=== PATIENT | male | born 1970 | race Caucasian/White ===

== ENCOUNTER 2021-09-30 10:24 | Outpatient (REF) | payer OTHER, SELFPAY ==
--- NOTE | ~2021-09-30 | US_ITS ---
EXAMINATION: US RETROPERITONEAL LIMITED (RENAL ONLY) CLINICAL INFORMATION: Chronic flank pain. COMPARISON: CT abdomen and pelvis 01/03/2020. Renal ultrasound 12/17/2019. TECHNIQUE: Real-time imaging of the kidneys. FINDINGS: RIGHT KIDNEY: 12.0 x 4.7 x 5.8 cm (SAG x AP x TRV). The kidney is normal in size, contour, and echogenicity. Renal cortical thickness is normal. No calculi or focal parenchymal lesions. No hydronephrosis. There is a hypertrophied column of Reza in midpole. LEFT KIDNEY: 12.1 x 5.5 x 5.2 cm (SAG x AP x TRV). The kidney is normal in size, contour, and echogenicity. Renal cortical thickness is normal. No renal calculi or hydronephrosis. There are multiple peripelvic cysts largest in midpole measuring 2.2 x 1.9 x 2.2 cm and upper pole measuring 2.0 x 1.1 x 1.4 cm. US/US renal BI IMPRESSION: Multiple peripelvic cysts left kidney. Hypertrophied column of Reza in midpole right kidney.
== END 2021-09-30 10:25 | disposition home or self-care (01) ==
LOC: HO.HMGCX 10:24
PROVIDERS: Visit Provider Nurse Practitioner Family
DX: R10.9 Unspecified abdominal pain (principal); G89.29 Other chronic pain
CPT/HCPCS: 76775

== ENCOUNTER 2021-10-05 07:17 | Outpatient (REF) | payer OTHER, SELFPAY ==
[2021-10-05 11:54] LABS: Alanine Aminotransferase 22 U/L (0-40); Albumin Level 4.2 g/dL (3.5-5.0); Alkaline Phosphatase 61 U/L (39-117); Anion Gap 11 (12-20); Aspartate Amino Transferase 20 U/L (5-37); Bilirubin Total 0.6 mg/dL (0.0-1.0); Blood Urea Nitrogen 22 mg/dL (9-16); Calcium 9.3 mg/dL (8.4-10.2); Carbon Dioxide 26 mmol/L (22-29); Chloride 106 mmol/L (96-108); Cholesterol 311 mg/dL; Estimated Glomerular Filt Rate > 60; Glucose Fasting 107 mg/dL (60-99); HDL Cholesterol 45 mg/dL; Iron 106 mcg/dL (45-160); LDL Cholesterol Calculated 225 mg/dl; Percent Iron Saturation 38 % (15-50); Potassium 4.4 mmol/L (3.3-5.1); Sodium 139 mmol/L (135-145); Total Iron Binding Capacity 280 mcg/dL (228-428); Total Protein 7.3 g/dL (6.5-8.0); Triglycerides 209 mg/dL; Unsaturated Iron Binding 174 ug/dL
[2021-10-05 12:03] LABS: Ferritin 247 ng/mL (20-250); Prostate Specific Antigen Scr 0.68 ng/mL (<0.05-4.0); TSH reflex Free T4 1.58 uIU/mL (0.32-4.0)
[2021-10-05 12:20] LABS: Vitamin B12 661 pg/mL (200-900)
[2021-10-05 13:51] LABS: Appearance Urine CLEAR; Color Urine YELLOW; Glucose Urine UA NEG (NEG); Leukocyte Esterase Urine NEG (NEG); Nitrite Urine NEG (NEG); Specific Gravity - Urine 1.025 (1.005-1.025); Urine Blood NEG (NEG); Urine Ketones NEG (NEG); Urine Protein NEG (NEG-TRACE)
[2021-10-06 08:32] LABS: Follicle Stimulating Hormone 4.9 mIU/mL (1.6-8.0); Lutenizing Hormone 2.2 mIU/mL (1.5-9.3)
[2021-10-09 16:56] LABS: Testosterone, Total 417 ng/dL (250-1100)
== END 2021-10-05 07:18 | disposition home or self-care (01) ==
LOC: HO.HMGCLDS 07:17
PROVIDERS: Visit Provider Nurse Practitioner Family
DX: Z00.00 Encounter for general adult medical examination without abnormal findings (principal); Z12.5 Encounter for screening for malignant neoplasm of prostate; R53.83 Other fatigue
CPT/HCPCS: 36415; 80053; 80061; 81003; 82607; 82728; 82746; 83001; 83002; 83540; 84153; 84402; 84403; 84443

== ENCOUNTER → 2021-11-23 08:46 | Outpatient (BNVA) | payer OTHER, SELFPAY | PROVIDERS: PCP Nurse Practitioner Family | DX: N28.1 Cyst of kidney, acquired (principal) | CPT/HCPCS: 99202 ==

== ENCOUNTER → 2021-12-01 10:26 | Outpatient (BNVA) | payer OTHER, SELFPAY | PROVIDERS: PCP Nurse Practitioner Family; Referring Provider Nurse Practitioner Family; Visit Provider Nurse Practitioner Family | DX: Z01.818 Encounter for other preprocedural examination (principal) | CPT/HCPCS: 99202; 99212 ==

== ENCOUNTER → 2021-12-29 12:50 | Outpatient (BNVA) | payer OTHER, SELFPAY | PROVIDERS: PCP Nurse Practitioner Family; Referring Provider Nurse Practitioner Family; Visit Provider Internal Medicine | DX: R06.02 Shortness of breath (principal); E78.5 Hyperlipidemia, unspecified; Z82.49 Family history of ischemic heart disease and other diseases of the circulatory system | CPT/HCPCS: 93005; 99202 ==

== ENCOUNTER → 2022-02-02 14:48 | Outpatient (REF) | payer OTHER, SELFPAY ==
--- NOTE | 2022-02-02 14:51 | CA_ITS ---
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 The calculated ejection fraction is 57% by biplane method. - No obvious valvular pathology seen on this study. Findings Left Ventricle Normal left ventricular cavity size. There is mildly increased left ventricular wall thickness. The left ventricular systolic function is normal. The calculated ejection fraction is 57% by biplane method. There is no evidence of regional wall motion abnormalities. Diastolic function is normal for age. Right Ventricle Normal right ventricular cavity size and systolic function. Atria Both atria are normal in size. Aortic Valve The aortic valve structure and function is likely normal. There is no aortic valve stenosis. There is no aortic valve regurgitation. Mitral Valve The mitral valve appears normal. There is no mitral valve regurgitation. There is no mitral valve stenosis. Pulmonic Valve The pulmonic valve is likely normal. Tricuspid Valve There is trace tricuspid valve regurgitation. There is no evidence of pulmonary hypertension. Great Vessels The aortic annulus, sinuses of valsalva, and asc aorta are normal in size. Venous The inferior vena cava is normal in size and collapses greater than 50% with inspiration. Pericardium/Pleural There is no evidence of pericardial effusion. Prior Study Comparison No prior study available for comparison. Recommendations, Care & Conclusions No obvious valvular pathology seen on this study. Measurements 2D Linear Measurements IVSd: 1.22 0.6-0.9/0.6-1.0 cm LVIDd: 4.80 3.9-5.3/4.2-5.9 cm LVIDd Index: 2.33 2.4-3.2/2.2-3.1 cm/m2 LVIDs: 2.97 2.0-3.6 cm LVPWd: 1.26 0.7-1.1 cm Ao Root: 3.30 2.1-3.5 cm LA Diam: 3.40 2.7-3.8/3.0-4.0 cm LAIDs Index: 1.65 1.5-2.3 cm/m2 LV Mass: 286.25 67-162/88-224 g LV Mass Index: 138.95 43-95/49-115 g/m2 LVOT Diam: 2.10 3.0+(-)1.3 cm 2D Systolic Function EF 4C: 60.70 >55% EF 2C: 52.70 >55% EF BiP: 56.70 >55% Mitral Valve MV Pk E: 0.64 MV PK A: 0.61 MV Decel Time: 223.00 E/A: 1.10 E'Lateral: 7.18 E'Medial: 7.94 E/E' Med: 8.10 E/E' Lat: 9.00 PHT: 65.00 MVA PHT: 3.38 Decel Cloud: 2.88 Aortic Valve AoV Pk Pantera: 1.58 AoV Mn Pantera: 1.11 AoV VTI: 0.33 AoV Pk Grad: 10.00 Aov Mn Grad: 6.00 SOHAIL Cont.VTI: 2.10 LVOT LVOT Pk Pantera: 1.01 LVOT Mn Pantera: 0.65 LVOT VTI: 0.20 LVOT Pk Grad: 4.00 LVOT Mn Grad: 2.00 LVOT Diam: 2.10 LVOT Area: 3.46 Diastolic Function MV Pk E: 0.64 MV Pk A: 0.61 E/A: 1.10 E'Medial: 7.94 E/E' Med: 8.10 E' Laterial: 7.18 E/E' Lat: 9.00 Right Ventricle TAPSE (mm): 29.00 Tricuspid Valve TR Pk Pantera: 2.47 TR Pk Grad: 24.00 RA Press: 3.00 RVSP: 27.00 Great Vessels Aorta Ao Root-2D: 3.30 2.0-3.7 cm Ao Asc: 3.10 2.1-3.4 cm Pulmonary Valve PV Pk Pantera: 1.13 Peak PV Grad: 5.00 Updated in Other Vendor System with Status of Final Lamonte Bocanegra MD electronically signed on 02/03/2022 2:07:58 PM with status of Final
== END ==
LOC: HO.CARD 14:48
PROVIDERS: PCP Nurse Practitioner Family; Visit Provider Internal Medicine
DX: R06.02 Shortness of breath (principal)
CPT/HCPCS: 93306

== ENCOUNTER 2022-04-04 07:07 | Outpatient (REF) | payer OTHER, SELFPAY ==
[2022-04-04 12:38] LABS: Alanine Aminotransferase 35 U/L (0-40); Albumin Level 4.3 g/dL (3.5-5.0); Alkaline Phosphatase 56 U/L (39-117); Aspartate Amino Transferase 23 U/L (5-37); Bilirubin Total 0.6 mg/dL (0.0-1.0); Blood Urea Nitrogen 21 mg/dL (9-16); Calcium 9.1 mg/dL (8.4-10.2); Cholesterol 190 mg/dL; Estimated Glomerular Filt Rate > 60; Glucose Fasting 101 mg/dL (60-99); Glucose Random 101 mg/dL (60-115); HDL Cholesterol 46 mg/dL; LDL Cholesterol Calculated 115 mg/dl; Total Protein 7.1 g/dL (6.5-8.0); Triglycerides 145 mg/dL
[2022-04-04 12:50] LABS: Anion Gap 10 (12-20); Carbon Dioxide 27 mmol/L (22-29); Chloride 106 mmol/L (96-108); Potassium 4.2 mmol/L (3.3-5.1); Sodium 139 mmol/L (135-145)
== END 2022-04-04 07:08 | disposition home or self-care (01) ==
LOC: HO.HMGCLDS 07:07
PROVIDERS: Absent Provider Internal Medicine; PCP Nurse Practitioner Family; Visit Provider Nurse Practitioner Family
DX: R06.02 Shortness of breath (principal); E78.5 Hyperlipidemia, unspecified
CPT/HCPCS: 36415; 80048; 80053; 80061

== ENCOUNTER 2022-04-13 07:25 | Day surgery (SDC) | payer OTHER, SELFPAY ==
[2022-04-05 09:32] VITALS: BMI 27.2
--- NOTE | 2022-04-12 10:01 | HO.ANESPROP2 ---
Documented by User: Chitra Cuba NP 04/12/22 10:03 HPI - Anesthesia Eval Consult details Narrative: 51yo M for Colonoscopy PMFSH Active Problems Active Problems: All Active Problems (Updated 04/04/22 @ 15:35 by Fabiola Avery RN) Physical exam (Acute) Screening PSA (prostate specific antigen) (Acute) Screening for colon cancer (Acute) Family history of HI (myocardial infarction) (Acute) Flank pain, chronic (Acute) Fatigue (Acute) Renal cyst, acquired, left (Acute) Dyslipidemia (Acute) Family history of premature CAD (Acute) SOB (shortness of breath) (Acute) Past Medical History Medical History Elevated cholesterol History of COVID-19 Renal cyst Family History Family History Father Heart attack S/P CABG x 4 Mother High cholesterol Brother Heart disease History of heart artery stent Brother S/P CABG x 4 Heart attack Surgical History Surgical History Hx of wisdom tooth extraction Social History Social History Household Members Other:: girlfriend Housing: House Are you a primary home care companion to a significant other at home: No Do you presently have visiting nurse or other home services: No Patient Tobacco Use Status: Never used Tobacco e-Cigarette/Vaping Use: Never Used Second Hand Smoke Exposure: No Use of substances other than those prescribed or required for medical reasons: No Have you been hit, kicked, punched, or otherwise hurt by someone within the past year? If so, by whom?: No Are you DNR?: No Advance Directives: No (mother is primary contact but no official HCP form) Advance Directives Information Provided: Yes (brochure mailed) Advance Directives on File: No Recently lost weight without trying: No Eating poorly because of decreased appetite: No Poor oral hygiene: No service: No Current occupational status: employed Current occupation: [employer] Current occupational exposures/hazards: No Cognitive needs: No Hearing needs: No Vision needs: No Meds Allergies Allergy/AdvReac Type Severity Reaction Status Date / Time No Known Allergies Allergy Verified 12/29/21 13:18 [No Known Allergies*] Exam Exam Date and Time: April 12, 2022 1001 Height,Weight and Vital Signs: Height 5 ft 10 in Weight 86.183 kg Pertinent Lab Results Pertinent Lab Results: Laboratory Tests 04/04/22 07:15 Sodium 139 Potassium 4.2 Chloride 106 Carbon Dioxide 27 BUN 21 H Creatinine 1.01 Assessment and Plan Assessment Anesthesia Assessment: Chart Reviewed Documented by User: Rena Stone MD 04/13/22 08:31 [facility] Past Medical History Medical History Elevated cholesterol History of COVID-19 Renal cyst Family History Family History Father Heart attack S/P CABG x 4 Mother High cholesterol Brother Heart disease History of heart artery stent Brother S/P CABG x 4 Heart attack Family history of problems with anesthesia: No Surgical History Surgical History Hx of wisdom tooth extraction History of Problems with Anesthesia: No Social History Social History Household Members Other:: girlfriend Housing: House Are you a primary home care companion to a significant other at home: No Do you presently have visiting nurse or other home services: No Patient Tobacco Use Status: Never used Tobacco e-Cigarette/Vaping Use: Never Used Second Hand Smoke Exposure: No Use of substances other than those prescribed or required for medical reasons: No Have you been hit, kicked, punched, or otherwise hurt by someone within the past year? If so, by whom?: No Are you DNR?: No Advance Directives: No (mother is primary contact but no official HCP form) Advance Directives Information Provided: Yes (brochure mailed) Advance Directives on File: No Recently lost weight without trying: No Eating poorly because of decreased appetite: No Poor oral hygiene: No service: No Current occupational status: employed Current occupation: [employer] Current occupational exposures/hazards: No Cognitive needs: No Hearing needs: No Vision needs: No Meds Allergies Allergy/AdvReac Type Severity Reaction Status Date / Time No Known Allergies Allergy Verified 12/29/21 13:18 [No Known Allergies*] Exam Height,Weight and Vital Signs: Height 5 ft 10 in Weight 86.183 kg Vital Signs Temp Pulse Resp BP Pulse Ox O2 Del Method 04/13/22 07:47 97.6 F 66 16 127/80 99 Room Air Narrative Narrative: 02/02/2022: Echo- Normal left ventricular function. EF 57% No WMA. No valvular pathology Airway Mallampati Class: II TM Dist: >3cm Neck ROM: Full Loose/Missing/Broken Teeth: No (Denies broken or loose teeth) Heart: RRR Lungs: CTAB Assessment and Plan Assessment Anesthesia Assessment: Anesthesia Plan Discussed Final Anesthetic Review Family History of Problems with Anesthesia: No History of Problems with Anesthesia: No NPO: Yes ASA Class: II Final Preanesthetic Review: No Changes in Pt Med Stat, Meds/Allgs Chart Reviewed, Consent Obtained/Reviewed and Anes Risks/Benef Reviewed Patient Risk: Low Procedure Risk: Low Assessment/Block/Sedation in SS: Assess/Block/Sedation-SS Anesthetic Plan Anesthetic Plan: MAC: Disposition: Standard PACU
[2022-04-13 07:47] VITALS: BP 127/80; PULSE 66; RESP 16; TEMP 36.4; O2SAT 99
[2022-04-13] MEDS: Lactated Ringers 1,000 ML 100 ML IVCONT (07:59)
--- NOTE | 2022-04-13 08:35 | MHC.SHP ---
Pre-Procedural Eval Section A Date of Service: 04/13/22 Section B Chief Complaint: screening Relevant Family History (Specify if Yes): No Relevant Social History: None Present Medications: see Short Stay Collaborative assessment Medical History: Significant History (Elevated cholesterol History of COVID-19 Renal cyst) History of Previous Operations: No relevant previous surgery Allergies: Allergies Allergy/AdvReac Type Severity Reaction Status Date / Time No Known Allergies Allergy Verified 12/29/21 13:18 [No Known Allergies*] Review of Systems Sugical H&P ROS: Negative: Constitution, Cardiovascular, Respiratory, Neurological, Psychiatric, Hem-Onc, Allergic/Immunologic, Gastrointestinal, Genitourinary, Musculoskeletal, Integumentary, Endocrine and Eyes/Ears/Nose/Throat Exam Surgical H&P Exam: Normal: HEENT, Normal: Heart, Normal: Lungs, Normal: Extremities, Normal: Abdomen, Normal: Skin and Normal: Neurological Plan Diagnosis/Plan: Unchanged I have reviewed the history and physical and performed a pertinent physical examination on my patient. No changes have occurred unless specified.
--- NOTE | 2022-04-13 08:43 | P.OP_ITS ---
Operative Note Operative Note Date of Service: 04/13/22 Narrative: Operative Information Procedure Description: Colonoscopy Indication: screening Anesthesia: MAC COLONOSCOPY Instrument: Olympus variable stiffness pediatric scope 190L Colonoscopy Monitoring: Vital signs and clinical assessment, continuous EKG monitoring, Pulse oximetry, Carbon Dioxide monitoring and blood pressure monitoring were done throughout the procedure. Colon withdrawal time was 10 minutes. Procedure: The patient was placed in the left lateral decubitis position and pre-procedure medications were administered. After a digital rectal examination of the ano-rectum, the video colonoscope was inserted into the rectum and advanced through the colon to the cecum/TI. The colonoscope was slowly withdrawn in a retrograde panoramic fashion and the colon mucosa was carefully examined including a retroflexed view of the rectum. Findings and interventions are described below. Procedure Difficulty: easy Findings: Terminal Ileum-normal Cecum: 10 mm sessile polyp removed with cold forceps Ascending Colon: normal Transverse Colon -normal Descending Colon: 10 mm sessile polyp removed with cold snare Sigmoid Colon: normal Rectum: Retroflexion with small internal hemorrhoids, grade I, 6-8 mm sessile polyp removed with cold forceps Anorectum - normal Colon preparation: [place] Bowel Preparation Scale Right colon; 3 Transverse colon: 2 Left colon; 2 (0 = Unprepared colon segment with mucosa not seen due to solid stool that cannot be cleared. 1 = Portion of mucosa of the colon segment seen, but other areas of the colon segment not well seen due to staining, residual stool and/or opaque liquid. 2 = Minor amount of residual staining, small fragments of stool and/or opaque liquid, but mucosa of colon segment seen well. 3 = Entire mucosa of colon segment seen well with no residual staining, small fragments of stool or opaque liquid) Impression and Post Procedure Diagnosis: polyps internal hemorrhoids Plan: High fiber diet leaflet Avoid straining at stool, epsom salts and sitz bath, anusol supps or cream Repeat Colonoscopy in 5 years due to polyps or earlier if clinically indicated Above findings were reviewed with the patient and relevant handouts were provided if indicated.
[2022-04-13 09:11] VITALS: BP 98/71; PULSE 68; RESP 14; TEMP 36.6; O2SAT 100
[2022-04-13 09:26] VITALS: BP 112/76; PULSE 68; RESP 14; TEMP 36.6; O2SAT 99
== END 2022-04-13 10:16 | disposition home or self-care (01) ==
PROVIDERS: PCP Nurse Practitioner Family; Visit Provider Internal Medicine Gastroenterology
PROC: 0DJD8ZZ Inspection of Lower Intestinal Tract, Via Natural or Artificial Opening Endoscopic (ICD-10-PCS; CPT 45378; principal; 2022-04-13 08:30)
DX: Z12.11 Encounter for screening for malignant neoplasm of colon (principal); D12.0 Benign neoplasm of cecum; D12.4 Benign neoplasm of descending colon; K62.1 Rectal polyp; K64.0 First degree hemorrhoids; E78.00 Pure hypercholesterolemia, unspecified; N28.1 Cyst of kidney, acquired; Z79.899 Other long term (current) drug therapy; Z86.16 Personal history of COVID-19
CPT/HCPCS: 45385; 45380; 88305

== ENCOUNTER 2022-07-23 14:52 | Emergency (ER) | payer OTHER, SELFPAY ==
[2022-07-23 15:14] VITALS: BP 125/86; PULSE 107; RESP 18; TEMP 36.4; O2SAT 98; BMI 27.2
--- NOTE | 2022-07-23 15:14 | ED.GENADULT ---
HPI - General Adult General Chief complaint: Abdominal Pain <HÉCTOR Chung Last Filed: 07/23/22 15:15> Stated complaint: Nausea/Abd pain/Diarrhea <HÉCTOR Chung Last Filed: 07/23/22 15:15> Time Seen by Provider: 07/23/22 17:50 <HÉCTOR Chung Last Filed: 07/23/22 15:15> Source: patient <HÉCTOR Dee Last Filed: 07/23/22 18:39> Mode of arrival: ambulatory <HÉCTOR Dee Last Filed: 07/23/22 18:39> Limitations: no limitations <HÉCTOR Dee Last Filed: 07/23/22 18:39> History of Present Illness HPI narrative: 51 y.o male with a PMHx of HLD who presents to the ED c/o nausea, 1 episode of emesis and ~5 episodes of nonbloody diarrhea since 5am this morning. Endorses epigastric cramping/pain, intermittent chills without known fever, and decreased P.O intake. Denies chest pain, SOB, melena/hematochezia, hematemesis, recent travel, sick contacts or suspicious food intake. <HÉCTOR Dee Last Filed: 07/23/22 18:39> Onset (ago): hour(s) <HÉCTOR Dee - Last Filed: 07/23/22 18:39> Related Data Home medications: Previous Rx's Medication Instructions Recorded rosuvastatin 10 mg tablet 10 mg PO BEDTIME 90 days #90 tabs 07/06/22 <HÉCTOR Chung Last Filed: 07/23/22 15:15> Allergies/adverse reactions: Allergies Allergy/AdvReac Type Severity Reaction Status Date / Time No Known Allergies Allergy Verified 07/23/22 15:14 [No Known Allergies*] <HÉCTOR Cuhng - Last Filed: 07/23/22 15:15> Review of Systems Review of Systems: Constitutional: No Fever, +Chills, + Malaise ENT/Mouth: No Nasal Congestion, No Sinus Pain, No Hoarseness, No sore throat, No Rhinorrhea, No Swallowing Difficulty Eyes: No Vision Changes Cardiovascular: No Chest Pain, No SOB, No Dyspnea, No Palpitations Respiratory: No Cough, No Sputum, No Wheezing, No Smoke Exposure, No Dyspnea Gastrointestinal: +Nausea, +Vomiting, + Diarrhea, No Constipation, +Abdominal pain, No Hematochezia, No Melena Genitourinary: No Dysuria, No Hematuria, No Urinary Incontinence/retention, No Urgency, No Flank Pain, No Urinary Flow Changes, No Hesitancy Musculoskeletal: No Myalgias, Skin: No Skin Lesions, No rash Neuro: No Weakness, No Numbness, No Paresthesias, No Loss of Consciousness, No Dizziness, No Headache <HÉCTOR Dee - Last Filed: 07/23/22 18:39> Yes all other systems are reviewed and are negative <HÉCTOR Dee - Last Filed: 07/23/22 18:39> Constitutional: Constitutional: Reports as per HPI <HÉCTOR eDe - Last Filed: 07/23/22 18:39> COUNTS INCLUDE 234 BEDS AT THE [facility] Past Medical History Attestation statement: The following information was validated with the patient. <HÉCTOR Dee - Last Filed: 07/23/22 18:39> Medical History: Medical History Elevated cholesterol History of COVID-19 Renal cyst <HÉCTOR Chung - Last Filed: 07/23/22 15:15> Surgical History: Surgical History Hx of wisdom tooth extraction <HÉCTOR Chung - Last Filed: 07/23/22 15:15> Family History Family History: Family History Father Heart attack S/P CABG x 4 Mother High cholesterol Brother Heart disease History of heart artery stent Brother S/P CABG x 4 Heart attack <HÉCTOR Chung - Last Filed: 07/23/22 15:15> Social History Social History: Social History Household Members Other:: girlfriend Housing: House Are you a primary director of healthcare systems to a significant other at home: No Do you presently have visiting nurse or other home services: No Patient Tobacco Use Status: Never used Tobacco e-Cigarette/Vaping Use: Never Used Second Hand Smoke Exposure: No Advance Directives: No Advance Directives Information Provided: No service: No Current occupational status: employed Current occupation: [employer] Current occupational exposures/hazards: No Cognitive needs: No Hearing needs: No Vision needs: No <HÉCTOR Chung - Last Filed: 07/23/22 15:15> Physical Exam ED Vital Signs: Vital Signs - 24 hr 07/23/22 15:14 07/23/22 17:11 Temperature 97.6 F 98.5 F Pulse Rate 107 H 105 H Respiratory Rate 18 18 Blood Pressure 125/86 135/70 Pulse Oximetry 98 97 Oxygen Delivery Method Room Air Room Air BMI result Body Mass Index 27.2 <HÉCTOR Chung - Last Filed: 07/23/22 15:15> Vital Signs - 24 hr 07/23/22 15:14 07/23/22 17:11 Temperature 97.6 F 98.5 F Pulse Rate 107 H 105 H Respiratory Rate 18 18 Blood Pressure 125/86 135/70 Pulse Oximetry 98 97 Oxygen Delivery Method Room Air Room Air BMI result Body Mass Index 27.2 <HÉCTOR Dee - Last Filed: 07/23/22 18:39> Const General: cooperative, healthy appearing and no acute distress <HÉCTOR Dee - Last Filed: 07/23/22 18:39> Orientation/consciousness: patient oriented x3 <HÉCTOR Dee - Last Filed: 07/23/22 18:39> Limitations: no limitations <HÉCTOR Dee - Last Filed: 07/23/22 18:39> HENMT Head: Yes normal to inspection and Yes atraumatic <HÉCTOR Dee - Last Filed: 07/23/22 18:39> Ears: hearing grossly normal bilaterally <HÉCTOR Dee - Last Filed: 07/23/22 18:39> General nose exam: Normal external nose present <HÉCTOR Dee - Last Filed: 07/23/22 18:39> Face and sinus: Yes normal facial exam <HÉCTOR Dee - Last Filed: 07/23/22 18:39> Eyes General: appearance normal, both eyes and all related structures <HÉCTOR Dee - Last Filed: 07/23/22 18:39> EOM: EOMs intact bilaterally <HÉCTOR Dee - Last Filed: 07/23/22 18:39> Neck Neck: Yes normal visual inspection and Yes no meningeal signs <Mayra Harry PA - Last Filed: 07/23/22 18:39> Resp Effort & Inspection: normal respiratory effort and no respiratory distress <HÉCTOR Dee - Last Filed: 07/23/22 18:39> Cardio Rate: regular rate <Mayra Harry PA - Last Filed: 07/23/22 18:39> Heart sounds: S1 normal heart sound present and S2 normal heart sound present <HÉCTOR Dee - Last Filed: 07/23/22 18:39> GI Inspection: Yes normal to inspection <HÉCTOR Dee - Last Filed: 07/23/22 18:39> Palpation (GI): Soft to palpation, nontender, no guarding and not rigid <Mayra Harry PA - Last Filed: 07/23/22 18:39> Skin Rashes: no rashes <Mayra Harry PA - Last Filed: 07/23/22 18:39> Wounds: no wounds <Mayra Harry PA - Last Filed: 07/23/22 18:39> Neuro General: patient oriented x3, tone normal and no meningeal signs <HÉCTOR Dee - Last Filed: 07/23/22 18:39> Gait exam (Neuro): Normal gait present <Mayra Harry PA - Last Filed: 07/23/22 18:39> Extrem General: Yes normal to inspection <HÉCTOR Dee - Last Filed: 07/23/22 18:39> Course Course Course Narrative: RME performed by Dominique Pennington PA-C. Patient is a 51 year old male presenting to the emergency department with nausea, vomiting, and abdominal cramping. Labs ordered. Patient placed back in the waiting room pending results and room availability. <HÉCTOR Chung Last Filed: 07/23/22 15:15> RME performed by Dominique Pennington PA-C. Patient is a 51 year old male presenting to the emergency department with nausea, vomiting, and abdominal cramping. Labs ordered. Patient placed back in the waiting room pending results and room availability. -no leukocytosis. BUN mildly elevated to 18 (elevated priors). Labs otherwise reassuring >>1830--patient received Zofran in triage. On evaluation reports symptomatic improvement, tolerated 2 packets of crackers and water in the ED without nausea or vomiting. Feels safe for discharge home at this time -heart rate 97 on re-evaluation prior to discharge Results discussed with patient including worrisome signs and symptoms and strict return precautions, and when to return to the emergency department. They verbalized understanding and feel safe for discharge at this time. <HÉCTOR Dee - Last Filed: 07/23/22 18:39> Medications Administered Discontinued Medications Generic Name Dose Route Start Last Admin Trade Name Freq PRN Reason Stop Dose Admin Ondansetron HCl 4 mg 07/23/22 15:15 07/23/22 17:07 Ondansetron Odt 4 Mg Tab.Rapdis TRANSLINGU 07/23/22 15:16 4 mg ONCE ONE Administration <HÉCTOR Chung - Last Filed: 07/23/22 15:15> Medications Administered Discontinued Medications Generic Name Dose Route Start Last Admin Trade Name Freq PRN Reason Stop Dose Admin Ondansetron HCl 4 mg 07/23/22 15:15 07/23/22 17:07 Ondansetron Odt 4 Mg Tab.Rapdis TRANSLINGU 07/23/22 15:16 4 mg ONCE ONE Administration <HÉCTOR Dee - Last Filed: 07/23/22 18:39> Medical Decision Making Medical Decision Making MDM Narrative: 51 y.o male with a PMHx of HLD who presents to the ED c/o nausea, 1 episode of emesis and ~5 episodes of nonbloody diarrhea since 5am this morning with epigastric cramping. On exam mildly tachycardic likely from dehydration, NAD, nontoxic appearing, ambulating around exam room, abdomen soft, nontender, no rebound or guarding. Patient reports symptomatic improvement on this riders evaluation. Concern for viral gastroenteritis vs ? Food poisoning. Rule out dehydration/metabolic abnormalities. Lower suspicion for cholecystitis/lithiasis, pancreatitis, appendicitis/diverticulitis or SBO at this time Plan: Labs, sublingual Zofran, p.o. challenge Please refer to course for remaining clinical decision making, interpretation of labs/imaging results, and discussions with consultants and/or family members. <HÉCTOR Dee - Last Filed: 07/23/22 18:39> Differential Diagnosis Differential Diagnoses: The differential diagnosis associated with the presentation includes <HÉCTOR Dee - Last Filed: 07/23/22 18:39> As above <HÉCTOR Dee - Last Filed: 07/23/22 18:39> Admission/Observation Consideration of admission/observation: Escalation of care including admission/observation considered <HÉCTOR Dee - Last Filed: 07/23/22 18:39> Lab Data MDM Lab Attestation statement: I reviewed the patient's lab results. <HÉCTOR Dee - Last Filed: 07/23/22 18:39> Result Diagrams: 07/23/22 15:35 07/23/22 15:35 <HÉCTOR Chung - Last Filed: 07/23/22 15:15> Labs: Lab Results 07/23/22 07/23/22 07/23/22 Range/Units 15:35 15:35 15:35 WBC 9.2 (4.8-10.8) X10*3/uL RBC 5.54 (4.60-5.80) X10*6/uL Hgb 16.2 (14.0-18.0) g/dl Hct 48.1 (42.0-52.0) % MCV 86.8 (80.0-98.0) fL MCH 29.2 (27.0-33.0) pg MCHC 33.7 (31.0-36.0) g/dl RDW 11.9 (11.0-16.0) % Plt Count 154 L (160-400) X10*3/uL MPV 8.9 L (9.4-12.4) fL Immature Gran % (Auto) 0.1 (0.0-0.4) % Neut % (Auto) 93.6 H (45-73) % Lymph % (Auto) 3.6 L (20-40) % [place] % (Auto) 2.4 (2-11) % Eos % (Auto) 0.1 (0-4) % Baso % (Auto) 0.2 (0-2) % Lymph # (Auto) 0.3 L (1.2-4.9) X10*3/uL [place] # (Auto) 0.2 (0.1-1.2) X10*3/uL Eos # (Auto) 0.0 (0.0-0.4) X10*3/uL Baso # (Auto) 0.0 (0.0-0.2) X10*3/uL Abs Immat Gran (auto) 0.01 (0.00-0.03) X10*3/uL Absolute Neuts (auto) 8.6 H (2.0-8.3) x10*3/uL Absolute Nucleated RBC 0.000 (0.0-0.012) X10*3/uL Nucleated RBC % (auto) 0.0 (0.0-0.2) /100WBC Smear Tech's Comments VERIFIED Sodium 139 (135-145) mmol/L Potassium 4.6 (3.3-5.1) mmol/L Chloride 105 (96-108) mmol/L Carbon Dioxide 20 L (22-29) mmol/L Anion Gap 19 (12-20) BUN 18 H (9-16) mg/dL Creatinine 1.04 (0.5-1.4) mg/dL Estim Creat Clear Calc 84.8 Estimated GFR > 60 Random Glucose 98 (60-115) mg/dL Calcium 9.1 (8.4-10.2) mg/dL Magnesium 1.8 (1.6-2.6) mg/dL Total Bilirubin 0.8 (0.0-1.0) mg/dL AST 24 (5-37) U/L ALT 38 (0-40) U/L Alkaline Phosphatase 60 (39-117) U/L Troponin I High Sens < 3.5 (<3.5-35.0) ng/L Total Protein 7.3 (6.5-8.0) g/dL Albumin 4.5 (3.5-5.0) g/dL <HÉCTOR Chung - Last Filed: 07/23/22 15:15> Lab Results 07/23/22 07/23/2223 Range/Units 15:35 15:35 15:35 WBC 9.2 (4.8-10.8) X10*3/uL RBC 5.54 (4.60-5.80) X10*6/uL Hgb 16.2 (14.0-18.0) g/dl Hct 48.1 (42.0-52.0) % MCV 86.8 (80.0-98.0) fL MCH 29.2 (27.0-33.0) pg MCHC 33.7 (31.0-36.0) g/dl RDW 11.9 (11.0-16.0) % Plt Count 154 L (160-400) X10*3/uL MPV 8.9 L (9.4-12.4) fL Immature Gran % (Auto) 0.1 (0.0-0.4) % Neut % (Auto) 93.6 H (45-73) % Lymph % (Auto) 3.6 L (20-40) % [place] % (Auto) 2.4 (2-11) % Eos % (Auto) 0.1 (0-4) % Baso % (Auto) 0.2 (0-2) % Lymph # (Auto) 0.3 L (1.2-4.9) X10*3/uL [place] # (Auto) 0.2 (0.1-1.2) X10*3/uL Eos # (Auto) 0.0 (0.0-0.4) X10*3/uL Baso # (Auto) 0.0 (0.0-0.2) X10*3/uL Abs Immat Gran (auto) 0.01 (0.00-0.03) X10*3/uL Absolute Neuts (auto) 8.6 H (2.0-8.3) x10*3/uL Absolute Nucleated RBC 0.000 (0.0-0.012) X10*3/uL Nucleated RBC % (auto) 0.0 (0.0-0.2) /100WBC Smear Tech's Comments VERIFIED Sodium 139 (135-145) mmol/L Potassium 4.6 (3.3-5.1) mmol/L Chloride 105 (96-108) mmol/L Carbon Dioxide 20 L (22-29) mmol/L Anion Gap 19 (12-20) BUN 18 H (9-16) mg/dL Creatinine 1.04 (0.5-1.4) mg/dL Estim Creat Clear Calc 84.8 Estimated GFR > 60 Random Glucose 98 (60-115) mg/dL Calcium 9.1 (8.4-10.2) mg/dL Magnesium 1.8 (1.6-2.6) mg/dL Total Bilirubin 0.8 (0.0-1.0) mg/dL AST 24 (5-37) U/L ALT 38 (0-40) U/L Alkaline Phosphatase 60 (39-117) U/L Troponin I High Sens < 3.5 (<3.5-35.0) ng/L Total Protein 7.3 (6.5-8.0) g/dL Albumin 4.5 (3.5-5.0) g/dL <HÉCTOR Dee - Last Filed: 07/23/22 18:39> External Record Review External record reviewed: Outpatient record, Prior outpatient labs and Prior outpatient radiology <HÉCTOR Dee - Last Filed: 07/23/22 18:39> Discharge Plan Discharge Clinical Impression: Gastroenteritis <HÉCTOR Chung - Last Filed: 07/23/22 15:15> Patient Disposition: Home, Self-Care <HÉCTOR Chung - Last Filed: 07/23/22 15:15> Instructions: Gastroenteritis (ED) <HÉCTOR Chung - Last Filed: 07/23/22 15:15> Additional Instructions: Your blood work showed mild dehydration Zofran as antinausea medication, take as needed. If symptoms persist or worsen, you are unable to eat or drink, or do not urinate for more than 6 hours return to the emergency department Practice a bland diet. Avoid spicy foods, sweets, caffeine, chocolate <HÉCTOR Chung - Last Filed: 07/23/22 15:15> Prescriptions: No Action rosuvastatin 10 mg tablet 10 mg PO BEDTIME 90 Days Qty: 90 0RF <HÉCTOR Chung - Last Filed: 07/23/22 15:15> Referrals: Yassine Crespo, ASSISTANT PROFESSOR OF THEATER[employer] [Primary Care Provider] - 3 days <HÉCTOR Chung - Last Filed: 07/23/22 15:15>
--- NOTE | 2022-07-23 15:15 | ECG_ITS ---
Test Reason : ABDOMINAL PAIN Blood Pressure : / mmHG Vent. Rate : 104 BPM Atrial Rate : 104 BPM P-R Int : 122 ms QRS Dur : 090 ms QT Int : 336 ms P-R-T Axes : 051 072 009 degrees QTc Int : 441 ms Sinus tachycardia Otherwise normal ECG No previous ECGs available Referred By: Dominique Pennington Electronically Signed By:AMADA BURRELL
[2022-07-23 15:43] LABS: Basophils Percent Auto 0.2 % (0-2); Eosinophils Percent Auto 0.1 % (0-4); Hematocrit 48.1 % (42.0-52.0); Hemoglobin 16.2 g/dl (14.0-18.0); Imm Gran Abs Auto 0.01 X10*3/uL (0.00-0.03); Imm Gran Pct Auto 0.1 % (0.0-0.4); Lymphocytes Absolute Auto 0.3 X10*3/uL (1.2-4.9); Lymphocytes Percent Auto 3.6 % (20-40); MANUAL DIFF FLAG SCAN; Mean Corpuscular HGB Conc 33.7 g/dl (31.0-36.0); Mean Corpuscular Hemoglobin 29.2 pg (27.0-33.0); Mean Corpuscular Volume 86.8 fL (80.0-98.0); Mean Platelet Volume 8.9 fL (9.4-12.4); Monocytes Absolute Auto 0.2 X10*3/uL (0.1-1.2); Monocytes Percent Auto 2.4 % (2-11); Neutrophils Absolute Auto 8.6 x10*3/uL (2.0-8.3); Neutrophils Percent Auto 93.6 % (45-73); Platelet Count 154 X10*3/uL (160-400); Red Blood Count 5.54 X10*6/uL (4.60-5.80); Red Cell Distribution Width 11.9 % (11.0-16.0); SCAN SMEAR FLAG 1; White Blood Count 9.2 X10*3/uL (4.8-10.8)
[2022-07-23 16:02] LABS: SLIDE REVIEW VERIFIED
[2022-07-23 16:04] LABS: Alanine Aminotransferase 38 U/L (0-40); Albumin Level 4.5 g/dL (3.5-5.0); Alkaline Phosphatase 60 U/L (39-117); Anion Gap 19 (12-20); Aspartate Amino Transferase 24 U/L (5-37); Bilirubin Total 0.8 mg/dL (0.0-1.0); Blood Urea Nitrogen 18 mg/dL (9-16); Calcium 9.1 mg/dL (8.4-10.2); Carbon Dioxide 20 mmol/L (22-29); Chloride 105 mmol/L (96-108); Creatinine Clr Calc Pharmacy 84.8; Estimated Glomerular Filt Rate > 60; Glucose Random 98 mg/dL (60-115); Magnesium 1.8 mg/dL (1.6-2.6); Potassium 4.6 mmol/L (3.3-5.1); Sodium 139 mmol/L (135-145); Total Protein 7.3 g/dL (6.5-8.0)
[2022-07-23 16:05] LABS: Troponin-I High Sensitivity < 3.5 ng/L (<3.5-35.0)
[2022-07-23] MEDS: Ondansetron ODT 4 MG TAB.RAPDIS TRANSLINGU (17:07)
[2022-07-23 17:11] VITALS: BP 135/70; PULSE 105; RESP 18; TEMP 36.9; O2SAT 97
[2022-07-23 18:54] VITALS: PULSE 95
== END 2022-07-23 19:01 | disposition home or self-care (01) ==
PROVIDERS: Physician Assistant Medical; Emergency Provider Emergency Medicine; PCP Nurse Practitioner Family
DX: K21.9 Gastro-esophageal reflux disease without esophagitis (principal); E78.5 Hyperlipidemia, unspecified; Z79.02 Long term (current) use of antithrombotics/antiplatelets
CPT/HCPCS: 36415; 80053; 83735; 84484; 85025; 93005; 99283

== ENCOUNTER 2023-10-05 10:50 | Outpatient (AMB) | payer OTHER, SELFPAY ==
--- NOTE | 2023-10-05 10:57 | MHC.PC.OV ---
Vital Signs 10/05/23 10:59 Height 5 ft 10 in Weight 207 lb BMI 29.7 BP 110/74 Blood Pressure Location Rt brachial Position Sitting Pulse 79 Pulse Source Pulse Oximeter Pulse Oximetry (%) 98 Oxygen Delivery Method Room Air Intake Visit Reasons: PE Intake Note: Patient here for physical exam. Colon: 2022 due back in 5yrs Allergies No Known Allergies [No Known Allergies*] Allergy (Verified 10/05/23 11:24) Medication List - Last Reconciled 10/05/23 by KRISTEN Pabon rosuvastatin 10 mg PO BEDTIME 90 days Tobacco use date assessed: 10/05/23 Dental Screening Dental Screen Date: 10/05/23 Did you have a dental visit in the last 12 months?: No Did you have a dental problem in the last 6 months where you did not have access to dental care?: No Was dental information given to patient?: No HPI PE HPI Details Pt is here for a PE. Will order labs. Colon screen is up to date. Due for PSA, will order. Denies dribbling with urination, weak stream, and frequent nocturia. Pt c/o left hip pain. He reports some weakness as well. Will order XR. PFSH Medical History Elevated cholesterol History of COVID-19 Renal cyst Surgical History Hx of wisdom tooth extraction Family History Father Heart attack S/P CABG x 4 Mother High cholesterol Brother Heart disease History of heart artery stent Brother S/P CABG x 4 Heart attack Social History Household Members Other:: girlfriend Housing: House Are you a primary toddler caregiver to a significant other at home: No Do you presently have visiting nurse or other home services: No Patient Tobacco Use Status: Never used Tobacco e-Cigarette/Vaping Use: Never Used Second Hand Smoke Exposure: No service: No Current occupational status: employed Current occupation: [employer] Current occupational exposures/hazards: No Cognitive needs: No Hearing needs: No Vision needs: No Questionnaire PHQ-9 Over the last 2 weeks, how often have you been bothered by any of the following problems? 1. Little interest or pleasure in doing things: not at all 2. Feeling down, depressed, or hopeless: not at all 3. Trouble falling or staying asleep, or sleeping too much: several days 4. Feeling tired or having little energy: several days 5. Poor appetite or overeating: not at all 6. Feeling bad about yourself - or that you are a failure or have let yourself or your family down: not at all 7. Trouble concentrating on things, such as reading the newspaper or watching television: not at all 8. Moving or speaking so slowly that other people could have noticed. Or the opposite - being so fidgety or restless that you have been moving around a lot more than usual: not at all 9. Thoughts that you would be better off or of hurting yourself in some way: not at all Total score: 2 Depression Screening Interpretation: Negative Depression Screening Done: Yes 29155 - PHQ-9 Billing: Patient declined-do not bill Source: Developed by Drs. Abebe Parry, Linda Pugh, Jefferson Sims and colleagues, with an educational martin from [employer]. Thrive Questionnaire Date Thrive assessed: 10/05/23 I am a: Patient What is your living situation today?: I have a steady place to live Within the past 12 months, did the food you bought not last and you didn't have the money to get more?: Never true Within the past 12 months, did you worry whether your food would run out before you got money to buy more?: Never true Do you have trouble paying for medicines?: No Do you have trouble getting transportation to medical appointments?: No Do you have trouble paying your heating and electricity bill?: No Do you have trouble taking care of your child, family member or friend?: No Do you have trouble with day-to-day activities such as bathing, preparing meals, shopping, managing finances, etc.?: No Are you currently unemployed and looking for a job?: No Are you interested in more education?: No Currently or been in a relationship where the following occur: I choose not to answer this question THRIVE Score: 0 AUDIT C Alcohol Use Questionnaire (AUDIT-C) 1. How often do you have a drink containing alcohol?: 2-3 times a week 2. How many drinks containing alcohol do you have on a typical day when you are drinking?: 7 to 9 3. How often do you have six or more drinks on one occasion?: Weekly Total Score: 9 Score Reviewed/Action Taken: Yes MEMO-7 AMB Questionnaire MEMO-7 Date MEMO - 7 assessed: 10/05/23 Feeling nervous, anxious, or on edge: 0 = Not at all Not being able to stop or control worryin = Several days Worrying too much about different things: 1 = Several days Trouble relaxin = Not at all Being so restless that it is hard to sit still: 0 = Not at all Becoming easily annoyed or irritable: 0 = Not at all Feeling afraid as if something awful might happen: 0 = Not at all Total MEMO-7 score (0-4 normal; 5-9 mild; 10-14 moderate; 15-21 severe): 2 Source: Developed by Drs. Abebe Parry, Linda Pugh, Jefferson Sims and colleagues, with an educational martin from [employer]. MEMO-7 Assessment Billing MEMO-7 Assessment Tool: MEMO-7 Assessment 64091 Review of Systems Const Denies chills and Denies fever(s) Eyes Denies blurry vision ENT Denies vertigo, Denies dizziness and Denies sore throat Card Denies chest pain at rest, Denies chest pain with activity, Denies diaphoresis, Denies dyspnea and Denies dyspnea on exertion Resp Denies cough, Denies dyspnea, Denies dyspnea on exertion and Denies wheezing GI Denies abdominal pain, Denies melena, Denies hematochezia, Denies constipation, Denies diarrhea and Denies loose stools Denies hematuria Musc Denies numbness and Denies tingling Skin/Breast Denies lesions Neuro Denies vertigo, Denies dizziness, Denies numbness and Denies tingling Psych Denies anxiety, Denies depression, Denies homicidal ideation, Denies suicidal ideation and Denies other (substance abuse) Aller/Immun Denies wheezing Physical exam (Primary Care) Vital Signs: Last Vital Signs Pulse 79 05/23/24 10:59 BP 110/74 10/05/23 10:59 Pulse Ox 98 10/05/23 10:59 Oxygen Delivery Method Room Air 10/05/23 10:59 BMI result Body Mass Index 29.7 Tobacco/Smoking Status: Tobacco use Status Tobacco use date assessed 10/05/23 10/05/23 11:03 Patient Tobacco Use Status Never used Tobacco 10/05/23 10:58 e-Cigarette/Vaping Use Never Used 10/05/23 10:58 Depression Screening Interpretation: Negative Thrive Assessment: Date of Thrive Assessment Date Thrive assessed 09/22/22 10/05/23 10:58 Currently or been in a relationship where the following occur: I choose not to answer this question Const General: cooperative Nutritional Appearance: well nourished Orientation/consciousness: patient oriented x3 HENMT Head: Yes normal to inspection, Yes normocephalic and Yes atraumatic Ears: TM's normal bilaterally Eyes General: appearance normal, both eyes and all related structures Alignment and Position: alignment normal and position normal Neck Neck: Yes normal visual inspection and Yes no lymphadenopathy Thyroid: Thyroid normal Resp Effort & Inspection: normal respiratory effort Auscultation: clear to auscultation bilaterally Cardio Rate: regular rate Rhythm: regular rhythm Heart sounds: S1 normal heart sound present, S2 normal heart sound present and no murmurs GI Palpation (GI): Soft to palpation and nontender Auscultation: normal bowel sounds Male General Exam: Yes normal external exam Penis: normal penis Scrotum: scrotum normal, testes descended bilaterally and no inguinal hernias Testes: no testicular mass Skin Rashes: no rashes Neuro General: patient oriented x3, moves all extremities, no focal motor deficits and deep tendon reflexes 2+ bilaterally Romberg Test: Negative Extrem Other: pt in supine position, knee to chest raises, entire left lower extrem raises, with minimal discomfort to left hip Psych Appearance: grossly normal Mental Status: mental status grossly normal Speech and movement: Normal speech and movement present Affect: normal affect Attitude: cooperative Thought process: Normal thought process present Thought content: Normal thought content present Insight: Good insight present (Psych) Judgement: Good judgement present (Psych) Assessment and Plan Assessment & Plan (1) Screening PSA (prostate specific antigen): Code(s): Z12.5 - Encounter for screening for malignant neoplasm of prostate Plan: PSA ordered (2) Left hip pain: Code(s): M25.552 - Pain in left hip Plan: XR ordered (3) Encounter for routine adult physical exam with abnormal findings: Code(s): Z00.01 - Encounter for general adult medical examination with abnormal findings Plan The patient agreed to the use of a biomedical engineering director for this encounter. Scribed for INDIGO Lu-MENG by Tiana Mcdonnell biomedical engineering director, on 10/05/2023 at 11:20 EST. Orders: Orders Comprehensive Page. Panel Fast Today Z00.00 - Encounter for general adult medical examination without abnormal findings TSH reflex Free T4 Today Z00.00 - Encounter for general adult medical examination without abnormal findings UA CC w/rflx Micro + Cult Today Z00.00 - Encounter for general adult medical examination without abnormal findings Complete Blood Count Auto Diff Today Z00.00 - Encounter for general adult medical examination without abnormal findings Lipid Panel Today Z00.00 - Encounter for general adult medical examination without abnormal findings Prostate Specific Antigen Scr Today Z12.5 - Encounter for screening for malignant neoplasm of prostate XR hip LT min 2V Today M25.552 - Pain in left hip Coding Level of Care Code Est Pt Prev Care 40-64y(70052) Diagnoses Screening PSA (prostate specific antigen) Z12.5 Left hip pain M25.552 Encounter for routine adult physical exam with abnormal findings Z00.01 Additional Codes MEMO-7 Assessment Billing - MEMO-7 Assessment Tool: MEMO-7 Assessment 20275 ([id number])
[2023-10-05 10:59] VITALS: BP 110/74; PULSE 79; O2SAT 98; BMI 29.7
== END 2023-10-05 11:43 | disposition home or self-care (01) ==
PROVIDERS: Visit Provider Nurse Practitioner Family
DX: Z00.01 Encounter for general adult medical examination with abnormal findings (principal); Z12.5 Encounter for screening for malignant neoplasm of prostate; M25.552 Pain in left hip
CPT/HCPCS: 99396

== ENCOUNTER 2024-03-22 07:31 | Outpatient (REF) | payer OTHER, SELFPAY ==
[2024-03-22 10:05] LABS: Basophils Percent Auto 0.8 % (0-2); Eosinophils Absolute Auto 0.1 X10*3/uL (0.0-0.4); Eosinophils Percent Auto 1.8 % (0-4); Hematocrit 44.1 % (42.0-52.0); Hemoglobin 15.5 g/dl (14.0-18.0); Imm Gran Abs Auto 0.01 X10*3/uL (0.00-0.03); Imm Gran Pct Auto 0.3 % (0.0-0.4); Lymphocytes Absolute Auto 1.6 X10*3/uL (1.2-4.9); MANUAL DIFF FLAG NO; Mean Corpuscular HGB Conc 35.1 g/dl (31.0-36.0); Mean Corpuscular Hemoglobin 30.5 pg (27.0-33.0); Mean Corpuscular Volume 86.6 fL (80.0-98.0); Mean Platelet Volume 9.6 fL (9.4-12.4); Monocytes Absolute Auto 0.3 X10*3/uL (0.1-1.2); Monocytes Percent Auto 8.8 % (2-11); Neutrophils Absolute Auto 1.8 x10*3/uL (2.0-8.3); Neutrophils Percent Auto 46.3 % (45-73); Platelet Count 200 X10*3/uL (160-400); Red Blood Count 5.09 X10*6/uL (4.60-5.80); Red Cell Distribution Width 11.7 % (11.0-16.0); White Blood Count 3.9 X10*3/uL (4.8-10.8)
[2024-03-22 10:06] LABS: Appearance Urine Clear; Color Urine Yellow; Glucose Urine UA Negative (Negative); Leukocyte Esterase Urine Negative (Negative); Nitrite Urine Negative (Negative); PH 6.5 (5.0-9.0); Urine Blood Negative (Negative); Urine Ketones Negative (Negative); Urine Protein Negative (Neg-Trace)
[2024-03-22 11:55] LABS: Prostate Specific Antigen Scr 0.97 ng/mL (<0.05-4.0)
[2024-03-22 12:22] LABS: Alanine Aminotransferase 37 U/L (0-40); Albumin Level 4.4 g/dL (3.5-5.0); Alkaline Phosphatase 47 U/L (39-117); Anion Gap 13 (12-20); Aspartate Amino Transferase 32 U/L (5-37); Bilirubin Total 0.6 mg/dL (0.0-1.0); Blood Urea Nitrogen 16 mg/dL (9-16); Carbon Dioxide 23 mmol/L (22-29); Chloride 107 mmol/L (96-108); Cholesterol 179 mg/dL (<200); Estimated Glomerular Filt Rate > 60; Glucose Fasting 103 mg/dL (60-99); HDL Cholesterol 43 mg/dL (>40); LDL Cholesterol Calculated 113 mg/dL (<100); Potassium 4.4 mmol/L (3.3-5.1); Sodium 139 mmol/L (135-145); TSH reflex Free T4 1.13 uIU/mL (0.32-4.0); Total Protein 7.3 g/dL (6.5-8.0); Triglycerides 115 mg/dL (<150)
== END 2024-03-22 07:32 | disposition home or self-care (01) ==
LOC: HO.HMGCLDS 07:31
PROVIDERS: PCP Nurse Practitioner Family; Visit Provider Nurse Practitioner Family
DX: Z00.00 Encounter for general adult medical examination without abnormal findings (principal); Z12.5 Encounter for screening for malignant neoplasm of prostate
CPT/HCPCS: 36415; 80053; 80061; 81003; 84153; 84443; 85025

== ENCOUNTER 2024-07-19 08:03 | Outpatient (AMB) | payer OTHER, SELFPAY ==
[2024-07-19 08:11] VITALS: BP 112/70; PULSE 80; TEMP 37; O2SAT 98; BMI 29.7
--- NOTE | 2024-07-19 08:11 | AM.OFFWIN_ITS ---
Intake Vital Signs 07/19/24 08:11 Height 5 ft 10 in Weight 207 lb BMI 29.7 BP 112/70 Blood Pressure Location Lt brachial Position Sitting Pulse 80 Pulse Source Pulse Oximeter Temp 98.6 F Temp Source Oral Pulse Oximetry (%) 98 Intake Visit Reasons: EP cough, cold, congestion Patient Tobacco Use Status: Never used Tobacco Allergies No Known Allergies [No Known Allergies*] Allergy (Verified 07/19/24 08:12) Do you need a note to return to daycare/school/sports/work: Yes HPI EP cough, cold, congestion HPI Details This is a 53-year-old male patient who presents to the walk-in clinic today with a 4 day history of flu-like symptoms. He states this started Monday, with cough, body aches, fever. He has been taking [id number] cough drops, Mucinex, DayQuil/NyQuil with some moderate relief. He states he was encouraged by his employer to come be evaluated. He denies any shortness of breath or GI symptoms. COUNTS INCLUDE 234 BEDS AT THE [facility] Medical History History of COVID-19 Renal cyst Elevated cholesterol Surgical History Hx of wisdom tooth extraction Family History Father Heart attack S/P CABG x 4 Mother High cholesterol Brother Heart disease History of heart artery stent Brother S/P CABG x 4 Heart attack Social History Household Members Other:: girlfriend Housing: House Are you a primary daycare teacher to a significant other at home: No Do you presently have visiting nurse or other home services: No Patient Tobacco Use Status: Never used Tobacco e-Cigarette/Vaping Use: Never Used Second Hand Smoke Exposure: No service: No Current occupational status: employed Current occupation: [employer] Current occupational exposures/hazards: No Cognitive needs: No Hearing needs: No Vision needs: No Review of Systems Const All systems reviewed & are unremarkable except as noted in HPI and below Physical Exam Vital Signs: Last Vital Signs Temp 98.6 F 07/19/24 08:11 Pulse 80 07/19/24 08:11 BP 112/70 07/19/24 08:11 Pulse Ox 98 07/19/24 08:11 BMI result Body Mass Index 29.7 Const General: cooperative, healthy appearing and no acute distress Nutritional Appearance: average body habitus Limitations: no limitations HEENT Head: Yes normal to inspection Ears: hearing grossly normal bilaterally General nose exam: Normal external nose present Face and sinus: Yes normal facial exam Mouth: Normal oral and palatal mucosa present Throat: Yes posterior oropharynx normal Neck Neck: Yes no lymphadenopathy Resp Effort & Inspection: normal respiratory effort and Actively coughing Quality: dry Auscultation: clear to auscultation bilaterally Cardio Jugular venous distension: no JVD Palpation: normal PMI Rate: regular rate Rhythm: regular rhythm Heart sounds: S1 normal heart sound present and S2 normal heart sound present Skin General skin exam: no rashes or lesions noted Extrem General: Yes capillary refill normal and Yes no clubbing, cyanosis or edema Psych Appearance: grossly normal Mental Status: mental status grossly normal Speech and movement: Normal speech and movement present Assessment & Plan Assessment & Plan (1) Viral upper respiratory infection: Code(s): J06.9 - Acute upper respiratory infection, unspecified Plan: Symptoms consistent with viral upper respiratory illness. Patient declines any viral testing. He verbalizes understanding that this is likely a viral illness, and treatment is supportive/conservative. He will continue to utilize [id number] cold/flu products and cough drops as needed. Encouraged rest, adequate hydration and healthy food intake. If he does not continue to improve with time/conservative measures, or if symptoms worsen/new symptoms develop, he can return to the clinic for further evaluation. Patient verbalizes understanding and agrees to plan. Coding Level of Care Code Est Pt Level 4 (54385) Diagnoses Viral upper respiratory infection J06.9
== END 2024-07-19 08:53 | disposition home or self-care (01) ==
PROVIDERS: PCP Nurse Practitioner Family; Visit Provider Nurse Practitioner Family
DX: J06.9 Acute upper respiratory infection, unspecified (principal)

== ENCOUNTER → 2024-07-19 08:03 | Outpatient (BNVA) | payer OTHER, SELFPAY | PROVIDERS: PCP Nurse Practitioner Family; Visit Provider Nurse Practitioner Family | DX: J06.9 Acute upper respiratory infection, unspecified (principal) | CPT/HCPCS: 99212 ==

== ENCOUNTER 2024-11-05 08:02 | Outpatient (AMB) | payer OTHER, SELFPAY ==
--- NOTE | 2024-11-05 08:15 | A.OFFPC_ITS ---
Vital Signs 11/05/24 08:18 Height 5 ft 10 in Weight 204 lb BMI 29.3 BP 102/56 L Blood Pressure Location Lt brachial Position Sitting Respiration 15 Pulse 77 Pulse Source Pulse Oximeter Temp 98.9 F Temp Source Oral Pulse Oximetry (%) 97 Oxygen Delivery Method Room Air Intake Visit Reasons: PE Intake Note: Pt is here today for his PE Allergies No Known Allergies (No Known Allergies*) Allergy (Verified 11/05/24 08:54) Medication List - Last Reconciled 11/05/24 by INDIGO Pabon- rosuvastatin 10 mg PO BEDTIME 90 days Tobacco use date assessed: 11/05/24 Dental Screening Dental Screen Date: 11/05/24 Did you have a dental visit in the last 12 months?: No Did you have a dental problem in the last 6 months where you did not have access to dental care?: No Was dental information given to patient?: Patient declined HPI PE HPI Details History of Present Illness The patient is a 54-year-old male presenting for a wellness visit. He reports that his colonoscopy is up to date and denies any gastrointestinal symptoms such as nausea, vomiting, or diarrhea. Additionally, he denies any cardiovascular symptoms including chest pain or shortness of breath. His PSA screening is also current, and he denies any urinary symptoms. He reports no psychological symptoms such as suicidal or homicidal ideation. Health Maintenance - Colonoscopy: Up to date - PSA screening: Up to date Social History Review of Systems - Gastrointestinal: Denies nausea, vomit ing, diarrhea - Cardiovascular: Denies chest pain, davy rtness of breath - Genitourinary: Denies urinary symptoms - Psychological: Denies suicidal ideatio n, homicidal ideation Physical Exam General: Cooperative, healthy appearing, comfortable, no acute distress and well developed Orientation: Patient oriented x3 Limitations: No limitations Head: Normal to inspection Ears: Hearing grossly normal bilaterally Nose: Normal external nose present Face and sinus: Normal facial exam Eyes: Appearance normal, both eyes and all related structures Neck: Normal visual inspection and Yes full ROM Respiratory: Normal respiratory effort and able to speak in complete sentences. Clear to auscultation bilaterally Cardiovascular: Regular rate and rhythm. S1 S2 GI: Normal to inspection. Soft to palpation and nontender : Testicles without masses/lesions and no hernias appreciated Skin: No rashes or lesions noted Neuro: Patient oriented x3 Extremities: Normal to inspection Results Plan The patient will continue with regular health maintenance screenings, including colonoscopy and PSA tests, as they are currently up to date. Additional laboratory tests will be conducted as part of his physical examination to ensure comprehensive health monitoring. [facility] Medical History History of COVID-19 Renal cyst Elevated cholesterol Surgical History Hx of wisdom tooth extraction Family History Father Heart attack S/P CABG x 4 Mother High cholesterol Brother Heart disease History of heart artery stent Brother S/P CABG x 4 Heart attack Social History Household Members Other:: girlfriend Housing: House Are you a primary long term care pharmacist to a significant other at home: No Do you presently have visiting nurse or other home services: No Patient Tobacco Use Status: Never used Tobacco e-Cigarette/Vaping Use: Never Used Second Hand Smoke Exposure: No service: No Current occupational status: employed Current occupation: [employer] Current occupational exposures/hazards: No Cognitive needs: No Hearing needs: No Vision needs: No Questionnaire PHQ-9 Over the last 2 weeks, how often have you been bothered by any of the following problems? 1. Little interest or pleasure in doing things: not at all 2. Feeling down, depressed, or hopeless: not at all 3. Trouble falling or staying asleep, or sleeping too much: not at all 4. Feeling tired or having little energy: not at all 5. Poor appetite or overeating: not at all 6. Feeling bad about yourself - or that you are a failure or have let yourself or your family down: not at all 7. Trouble concentrating on things, such as reading the newspaper or watching television: not at all 8. Moving or speaking so slowly that other people could have noticed. Or the opposite - being so fidgety or restless that you have been moving around a lot more than usual: not at all 9. Thoughts that you would be better off or of hurting yourself in some way: not at all Total score: 0 Depression Screening Interpretation: Negative Depression Screening Done: Yes [id number] - PHQ-9 Billing: Yes Source: Developed by Drs. Abebe Parry, Linda Pugh, Jefferson Sims and colleagues, with an educational martin from [employer]. Thrive Questionnaire Date Thrive assessed: 11/04/24 I am a: Patient What is your living situation today?: I have a steady place to live Within the past 12 months, did the food you bought not last and you didn't have the money to get more?: Never true Within the past 12 months, did you worry whether your food would run out before you got money to buy more?: Never true Do you have trouble paying for medicines?: No Do you have trouble getting transportation to medical appointments?: No Do you have trouble paying your heating and electricity bill?: No Do you have trouble taking care of your child, family member or friend?: No Do you have trouble with day-to-day activities such as bathing, preparing meals, shopping, managing finances, etc.?: No Are you currently unemployed and looking for a job?: No Are you interested in more education?: No Please select the resources that you would like help with: None Currently or been in a relationship where the following occur: No concerns reported THRIVE Score: 0 AUDIT C Alcohol Use Questionnaire (AUDIT-C) 1. How often do you have a drink containing alcohol?: 2-3 times a week 2. How many drinks containing alcohol do you have on a typical day when you are drinking?: 5 or 6 3. How often do you have six or more drinks on one occasion?: Monthly Total Score: 7 MEMO-7 AMB Questionnaire MEMO-7 Date MEMO - 7 assessed: 11/05/24 Feeling nervous, anxious, or on edge: 0 = Not at all Not being able to stop or control worryin = Not at all Worrying too much about different things: 0 = Not at all Trouble relaxin = Not at all Being so restless that it is hard to sit still: 0 = Not at all Becoming easily annoyed or irritable: 0 = Not at all Feeling afraid as if something awful might happen: 0 = Not at all Total MEMO-7 score (0-4 normal; 5-9 mild; 10-14 moderate; 15-21 severe): 0 Source: Developed by Drs. Abebe Parry, Linda Pugh, Jefferson Sims and colleagues, with an educational martin from [employer]. Physical exam (Primary Care) Vital Signs: Last Vital Signs Temp 98.9 F 11/05/24 08:18 Pulse 77 11/05/24 08:18 Resp 15 11/05/24 08:18 BP 102/56 L 11/05/24 08:18 Pulse Ox 97 11/05/24 08:18 Oxygen Delivery Method Room Air 11/05/24 08:18 BMI result Body Mass Index 29.3 Tobacco/Smoking Status: Tobacco use Status Tobacco use date assessed 11/05/24 11/05/24 08:21 Patient Tobacco Use Status Never used Tobacco 11/05/24 08:21 e-Cigarette/Vaping Use Never Used 11/05/24 08:21 PHQ-9: PHQ-9 Score PHQ-9: Total score 0 11/05/24 08:21 Depression Screening Interpretation: Negative Thrive Assessment: Date of Thrive Assessment Date Thrive assessed 11/04/24 11/05/24 08:21 Currently or been in a relationship where the following occur: No concerns reported Coding Level of Care Code Est Pt Prev Care 40-64y(56499) Diagnoses Physical exam Z00. Additional Codes PHQ-9 - 46859 - PHQ-9 Billing: Yes ([id number]) Assessment & Plan Assessment & Plan (1) Physical exam: Code(s): Z00.00 - Encounter for general adult medical examination without abnormal findings Category: Medical Plan . Orders: Orders Complete Blood Count Auto Diff Today Z00.00 - Encounter for general adult medical examination without abnormal findings UA CC w/rflx Micro + Cult Today Z00.00 - Encounter for general adult medical examination without abnormal findings Comprehensive Jennings. Panel Fast Today Z00.00 - Encounter for general adult medical examination without abnormal findings TSH reflex Free T4 Today Z00.00 - Encounter for general adult medical examination without abnormal findings Lipid Panel Today Z00.00 - Encounter for general adult medical examination without abnormal findings
[2024-11-05 08:18] VITALS: BP 102/56; PULSE 77; RESP 15; TEMP 37.2; O2SAT 97; BMI 29.3
== END 2024-11-05 08:53 | disposition home or self-care (01) ==
LOC: HO.HMCC 08:03
PROVIDERS: PCP Nurse Practitioner Family; Visit Provider Nurse Practitioner Family
DX: Z00.00 Encounter for general adult medical examination without abnormal findings (principal)

== ENCOUNTER → 2024-11-05 08:02 | Outpatient (BNVA) | payer OTHER, SELFPAY | PROVIDERS: PCP Nurse Practitioner Family; Visit Provider Nurse Practitioner Family | DX: Z00.00 Encounter for general adult medical examination without abnormal findings (principal) | CPT/HCPCS: 96127; 99396 ==